=== PATIENT | female | born 1970 | race African-American/Black ===

== ENCOUNTER 2018-01-08 10:13 | Outpatient (CLI) | payer BC | END 2018-01-08 18:19 | disposition home or self-care (01) | LOC: SMA 10:13 | PROVIDERS: ATTEND Family Medicine | DX: R92.2 Inconclusive mammogram (principal) | CPT/HCPCS: 76641; 77066 ==

== ENCOUNTER 2018-08-06 09:13 | Outpatient (CLI) | payer BC | END 2018-08-06 19:19 | disposition home or self-care (01) | LOC: SMA 09:13 | PROVIDERS: ATTEND Family Medicine | DX: N60.01 Solitary cyst of right breast (principal); N60.02 Solitary cyst of left breast | CPT/HCPCS: 76641 ==